=== PATIENT | female | born 1975 | race Caucasian/White ===

== ENCOUNTER 2022-06-16 13:02 | Emergency (ER) | payer MEDICARE, BC, SELFPAY ==
[2022-06-16 13:34] VITALS: BP 139/88; PULSE 88; RESP 18; TEMP 37.1; O2SAT 100; BMI 24.8
--- NOTE | 2022-06-16 14:46 | ED.GENADULT ---
HPI - General Adult General Time Seen by Provider: 14:47 Date Seen: 06/16/22 Chief complaint: Back Injury/Pain Stated complaint: Back Pain Time Seen by Provider: 06/16/22 14:32 Source: patient Mode of arrival: ambulatory Limitations: no limitations History of Present Illness HPI narrative: Harriett is a 46-year-old female past medical history includes BRCA positive breast cancer presents emergency department via private car with lower back pain. Patient came from [place] today, she was scheduled to have a corpectomy today to further evaluate her recent workup positive diagnosis, she states that yesterday around 3:30 p.m. she developed some lower lumbar back pain. No history of any kidney stones in the past, no history of any injury, pain is lower lumbar area, tight in nature, she denies any urinary or bowel incontinence or retention, she denies any, weakness or numbness of the lower extremities. She has been taking [id number] Motrin and Tylenol, pain is worse on ambulation, feels better when she is laying flat. She denies any dysuria, have some explosive diarrhea last night, she denies any worsening abdominal pain, she has not had any blood or dark tarry stools. Related Data Home Medications Medication Instructions Recorded Confirmed cyclobenzaprine 10 mg tablet mg 06/16/22 fluoxetine 40 mg capsule mg 06/16/22 prazosin 2 mg capsule mg 06/16/22 Previous Rx's Medication Instructions Recorded cefdinir 300 mg capsule 300 mg PO BID 7 days #14 caps 06/16/22 diazepam 5 mg tablet (Valium) 5 mg PO TID PRN #14 tabs 06/16/22 Allergies Allergy/AdvReac Type Severity Reaction Status Date / Time No Known Drug Allergies Allergy Verified 06/16/22 15:06 Review of Systems Status of ROS: Reports: 10 or more systems reviewed and unremarkable except as noted in History and below [facility] Medical History (Updated 06/16/22 @ 16:36 by Km Kwan MD) Breast cancer Surgical History (Updated 06/16/22 @ 15:25 by Zaida Jose RN) H/O lumpectomy Social History Smoking Status: Never smoker How often do you have a drink containing alcohol: never AUDIT-C Alcohol total score: 0 Non-prescribed substance use: denies use Exam Narrative: Exam Narrative: General: No obvious distress sitting comfortably HEENT: Tympanic membranes within normal limits bilaterally oropharynx clear and moist Neck: Supple full range of motion Abdomen: Soft, nontender, bowel sounds present Heart: Normal sinus rhythm S1-S2 Lungs clear to auscultation bilaterally Muscle skeletal: Tender to palpation the lower lumbar paraspinal musculature, no midline tenderness, straight leg raise and crossover 20? negative, +5 strength lower extremities bilaterally, CMS intact Neuro: Alert awake and oriented x3 Const: Vital Signs, click to edit/add: Vital Signs - 24 hr 06/16/22 13:34 06/16/22 15:27 06/16/22 16:26 Temperature 98.8 F Pulse Rate [Right Pulse Oximeter] 88 74 70 Respiratory Rate 18 18 Blood Pressure [Ri ght Upper Arm] 139/88 138/85 Pulse Oximetry 100 100 100 Oxygen Delivery Me thod Room Air Room Air Course Course Hospital Course: 2:30 PM: ADIET performed. vitals are stable. Work up will include IV peripheral, 30 mg IV Toradol and a mg IV Valium, will place Lidoderm patch 5% bilaterally, less likely nephrolithiasis or urolithiasis, possible urinary tract infection seems more muscle skeletal, will obtain basic labs. May consider further imaging. Differential diagnosis include cauda equina and epidural abscess. Other differential diagnosis considered includes sprain, contusion, nerve root entrapment, radiculopathy, muscle spasm urolithiasis, lumbar fracture, pyelonephritis as well as other etiologies. Reevaluation(s) Reevaluation #1: Patient was updated on her lab results, CBC showed no leukocytosis, inflammatory markers were negative, metabolic panel within normal limits, UA showed 3+ Leukocyte esterase, 25-50 WBC's, few bacteria, urine culture sent, should be treated with cefdinir 300 mg b.i.d. over the next 7 days proper followup. Reasons to return given. Time: 16:27 Vital Signs Vital signs: Initial Vital Signs Temperature 98.8 F 06/16/22 13:34 Temperature Source Temporal Artery Scan 06/16/22 13:34 Pulse Rate 88 06/16/22 13:34 Respiratory Rate 18 06/16/22 13:34 Blood Pressure 139/88 06/16/22 13:34 Blood Pressure Mean 105 06/16/22 13:34 Blood Pressure Position Sitting 06/16/22 13:34 Pulse Oximetry 100 06/16/22 13:34 Oxygen Delivery Method 06/16/22 13:34 Vital Signs Temperature 98.8 F 06/16/22 13:34 Pulse Rate 88 06/16/22 13:34 Respiratory Rate 18 06/16/22 13:34 Blood Pressure 139/88 06/16/22 13:34 Pulse Oximetry 100 06/16/22 13:34 Oxygen Delivery Method 06/16/22 13:34 Temperature 98.8 F 06/16/22 13:34 Pulse Rate 70 06/16/22 16:26 Respiratory Rate 18 06/16/22 15:27 Blood Pressure 138/85 06/16/22 16:26 Pulse Oximetry 100 06/16/22 16:26 Oxygen Delivery Method 06/16/22 16:26 Medical Decision Making Lab Data Labs: Lab Results 06/16/22 06/16/22 06/16/22 Range/Units 15:00 15:00 16:00 WBC 7.16 (4.50-11.00) K/uL RBC 4.30 (4.00-5.20) m/uL Hgb 13.1 (12.0-16.0) gm/dL Hct 39.1 (33.0-51.0) % MCV 91 (80-100) fL MCH 31 (26-34) pg MCHC 34 (32-36) gm/dL RDW Coeff of Alana 12.8 (11.5-15.5) % Plt Count 179 (140-440) K/uL Neut % (Auto) 55.8 (42.0-72.0) % Lymph % (Auto) 35.8 (20-44) % [place] % (Auto) 6.0 (0.0-11.0) % Eos % (Auto) 2.1 (0.0-7.0) % Baso % (Auto) 0.3 (0.0-3.0) % Neut # (Auto) 4.00 (1.7-7.0) K/uL Lymph # (Auto) 2.56 (0.90-2.90) K/uL [place] # (Auto) 0.40 (0.00-0.90) K/UL Eos # (Auto) 0.15 (0.00-0.50) K/uL Baso # (Auto) 0.02 (0.00-0.30) K/uL Abs Immat Gran (auto) 0.00 (0.00-0.30) K/uL Sodium 135 (135-149) mmol/L Potassium 4.2 (3.6-5.1) mmol/L Chloride 106 (96-114) mmol/L Carbon Dioxide 18 L (20-32) mmol/L BUN 12 (5-24) mg/dL Creatinine 0.5 (0.5-1.5) mg/dL Estimated Creat Clear 117.54 Estimated GFR 118 ml/min Glucose 83 (60-115) mg/dL Calcium 9.1 (8.4-10.6) mg/dL Total Bilirubin 0.6 (0.1-1.5) mg/dL AST 36 H (12-35) U/L ALT 17 (4-35) U/L Alkaline Phosphatase 98 (40-150) U/L C-Reactive Protein < 0.5 L (0.5-1.0) mg/dL Total Protein 8.2 (6.0-8.3) g/dL Albumin 4.6 (3.3-5.0) g/dL Urine Color Yellow (Yellow) Urine Appearance Slightly Cloudy A (Clear) Urine pH 6.0 (5.0-8.5) Ur Specific [place] 1.020 (1.000-1.030) Urine Protein Negative (Negative) Urine Glucose (UA) Negative (Negative) Urine Ketones Negative (Negative) Urine Blood Trace-intact A (Negative) Urine Nitrite Negative (Negative) Urine Bilirubin Negative (Negative) Urine Urobilinogen 0.2 (0.2-1.0) Ur Leukocyte Esterase 3+ A (Negative) Urine RBC 2-5 A (0-2) Urine WBC 25-50 A (0-5) Ur Squamous Epith Cells Moderate A (None-Few) Urine Bacteria Few A (None) Discharge Plan Discharge Clinical Impression: Lower back pain, History of urinary tract infection Patient Disposition: Home, Self-Care Condition: Improved Instructions: Back Pain (ED) Additional Instructions: To take the Naproxen at home as scheduled, to add Valium 5-10 mg every 4-6 hours as needed for back spasm, to follow up as scheduled with your primary care provider over the next 7-10 days. Return precautions given. Activity Level: Activity as Tolerated Prescriptions: New diazepam [Valium] 5 mg tablet 5 mg PO TID PRNQty: 14 0RF cefdinir 300 mg capsule 300 mg PO BID 7 Days Qty: 14 0RF No Action fluoxetine 40 mg capsule cyclobenzaprine 10 mg tablet prazosin 2 mg capsule Stand Alone Forms: [employer] Info Instructions
[2022-06-16] MEDS: LIDOCAINE 5% PATCH 1 PATCH TRANSDERMA (15:13)
[2022-06-16] MEDS: KETOROLAC 30 MG/ML inj IVP (15:13)
[2022-06-16] MEDS: diazePAM 5 MG/ML inj IV (15:14)
[2022-06-16 15:20] LABS: Basophils Absolute Auto 0.02 K/uL (0.00-0.30); Basophils Percent Auto 0.3 % (0.0-3.0); Eosinophils Absolute Auto 0.15 K/uL (0.00-0.50); Eosinophils Percent Auto 2.1 % (0.0-7.0); Hematocrit 39.1 % (33.0-51.0); Hemoglobin* 13.1 gm/dL (12.0-16.0); Lymphocytes Absolute Auto 2.56 K/uL (0.90-2.90); Lymphocytes Percent Auto 35.8 % (20-44); Mean Corpuscular HGB Conc 34 gm/dL (32-36); Mean Corpuscular Hemoglobin 31 pg (26-34); Mean Corpuscular Volume 91 fL (80-100); Neutrophils Percent Auto 55.8 % (42.0-72.0); Platelet Count* 179 K/uL (140-440); RDW Coefficient of Variation % 12.8 % (11.5-15.5); White Blood Count* 7.16 K/uL (4.50-11.00)
[2022-06-16 15:21] LABS: Slide Review Reflex No
[2022-06-16 15:27] VITALS: PULSE 74; RESP 18; O2SAT 100
[2022-06-16 15:57] LABS: Albumin* 4.6 g/dL (3.3-5.0); Chloride* 106 mmol/L (96-114); Potassium* 4.2 mmol/L (3.6-5.1); Sodium* 135 mmol/L (135-149)
--- NOTE | 2022-06-16 15:58 | ED.NURSE ---
pain better than before. ambulated to br, collecting urine sample.
[2022-06-16 15:59] LABS: Creatinine* 0.5 mg/dL (0.5-1.5); Est. Creatinine Clearance* 117.54; Estimated Glomerular Filt Rate 118 ml/min
[2022-06-16 16:00] LABS: Alanine Aminotransferase* 17 U/L (4-35); Alkaline Phosphatase* 98 U/L (40-150); Aspartate Amino Transferase* 36 U/L (12-35); Bilirubin Total* 0.6 mg/dL (0.1-1.5); Blood Urea Nitrogen* 12 mg/dL (5-24); Carbon Dioxide* 18 mmol/L (20-32); Glucose* 83 mg/dL (60-115); Total Protein* 8.2 g/dL (6.0-8.3)
[2022-06-16 16:01] LABS: Calcium* 9.1 mg/dL (8.4-10.6)
[2022-06-16 16:04] LABS: C Reactive Protein* < 0.5 mg/dL (0.5-1.0)
[2022-06-16 16:09] LABS: Appearance Urine Slightly Cloudy (Clear); Bilirubin Urine Negative (Negative); Blood Urine Trace-intact (Negative); Color Urine Yellow (Yellow); Glucose Urine Negative (Negative); Ketones Urine Negative (Negative); Leukocyte Esterase Urine 3+ (Negative); Nitrite Urine Negative (Negative); Protein Urine Negative (Negative); Urobilinogen Urine 0.2 (0.2-1.0)
--- NOTE | 2022-06-16 16:20 | ED.NURSE ---
Work note provided to pt through 06/17/22. IV in R hand DC'd, catheter intact.
[2022-06-16 16:26] VITALS: BP 138/85; PULSE 70; O2SAT 100
[2022-06-16 16:33] LABS: Bacteria Urine Few; Squamous Epithelial Cell Urine Moderate (None-Few); WBC Urine 25-50 (0-5)
== END 2022-06-16 16:39 | disposition home or self-care (01) ==
PROVIDERS: Emergency Provider Student in an Organized Health Care Education/Training Program
DX: M54.50 Low back pain, unspecified (principal); Z87.440 Personal history of urinary (tract) infections
CPT/HCPCS: 36415; 80053; 81003; 81015; 85025; 86140; 87086; 96374; 96375; 99283; 99284; A9270; J1885; J3360

== ENCOUNTER 2022-07-09 09:50 | Outpatient (RCR) | payer MEDICARE, BC, SELFPAY | END 2022-11-04 13:41 | disposition home or self-care (01) | PROVIDERS: Visit Provider Family Medicine | DX: M54.12 Radiculopathy, cervical region (principal); M79.602 Pain in left arm; M54.6 Pain in thoracic spine; Z51.89 Encounter for other specified aftercare | CPT/HCPCS: 97110; 97162; 97530 ==

== ENCOUNTER 2022-07-15 09:49 | Emergency (ER) | payer MEDICARE, BC, SELFPAY ==
[2022-07-15 10:42] VITALS: BP 108/84; PULSE 70; RESP 16; TEMP 37.2; O2SAT 98; BMI 25.2
[2022-07-15 11:32] LABS: SARS PCR* Negative SARS-CoV-2 (Negative)
[2022-07-15] MEDS: IBUPROFEN 400 MG TABLET 800 MG PO (12:12)
[2022-07-15 12:20] VITALS: BP 108/84; PULSE 70; RESP 16; TEMP 37.2
[2022-07-15 13:35] LABS: PCR FLU A Negative PCR FLU A (Negative); PCR FLU B Negative PCR FLU B (Negative); PCR RSV Negative PCR RSV (Negative)
--- NOTE | 2022-07-15 13:35 | ED.GENADULT ---
HPI - General Adult General Chief complaint: Cough Stated complaint: Covid+, sore throat, chest pain Time Seen by Provider: 07/15/22 11:10 History of Present Illness HPI narrative: 46-year-old woman presenting to the emergency department with complaint now 2nd day of throat pain ear pain a little shortness of breath frankly pain all over. She took a COVID test yesterday which was positive another 1 this morning was negative. 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 She has not had a measured fever but does feel warm. She did get her flu shot as well as COVID vaccines. No exposures noted. Has been sneezing she says and some cough. No rash. No diarrhea noted. Related Data Home Medications Medication Instructions Recorded Confirmed fluoxetine 40 mg capsule 40 mg PO DAILY 06/16/22 07/15/22 prazosin 2 mg capsule 2 mg PO DAILY 06/16/22 07/15/22 bupropion HCl 100 mg tablet 150 mg PO DAILY 07/15/22 07/15/22 Allergies Allergy/AdvReac Type Severity Reaction Status Date / Time No Known Drug Allergies Allergy Verified 06/16/22 15:06 Review of Systems Status of ROS: Reports: 6 or more systems reviewed and unremarkable except as noted in History and below [facility] Medical History Breast cancer Surgical History H/O lumpectomy Social History Smoking Status: Never smoker How often do you have a drink containing alcohol: never AUDIT-C Alcohol total score: 0 Non-prescribed substance use: denies use Exam Narrative: Exam Narrative: Pleasant. Curled up under a blanket. Looks like she feels uncomfortable. Bright pink lead dyed hair in front. Breathing easily. Has some tattoos on the right upper chest. TMs bilaterally are clear. Posterior oropharynx with some injected blood vessels more evident but otherwise no diffuse erythema. Upper denture plate. Neck is supple without lymphadenopathy. Lungs are clear equal expansion excursion cardiovascular with regular rate and rhythm. Soreness to palpation over the shoulders. Abdomen is soft and nontender. She is moving all extremities without difficulty. She is well perfused. Const: Vital Signs, click to edit/add: Vital Signs - 24 hr 07/15/22 10:42 07/15/22 12:20 Temperature 98.9 F 98.9 F Pulse Rate [Left P ulse Oximeter] 70 70 Respiratory Rate 16 16 Blood Pressure [Le ft Upper Arm] 108/84 108/84 Pulse Oximetry 98 Oxygen Delivery Me thod Room Air Documenting provider has reviewed patient's vital signs: yes Course Vital Signs Vital signs: Initial Vital Signs Temperature 98.9 F 07/15/22 10:42 Temperature Source Temporal Artery Scan 07/15/22 10:42 Pulse Rate 70 07/15/22 10:42 Respiratory Rate 16 07/15/22 10:42 Blood Pressure 108/84 07/15/22 10:42 Blood Pressure Mean 92 07/15/22 10:42 Blood Pressure Position Sitting 07/15/22 10:42 Pulse Oximetry 98 07/15/22 10:42 Oxygen Delivery Method 07/15/22 10:42 Vital Signs Temperature 98.9 F 07/15/22 10:42 Pulse Rate 70 07/15/22 10:42 Respiratory Rate 16 07/15/22 10:42 Blood Pressure 108/84 07/15/22 10:42 Pulse Oximetry 98 07/15/22 10:42 Oxygen Delivery Method 07/15/22 10:42 Temperature 98.9 F 07/15/22 12:20 Pulse Rate 70 07/15/22 12:20 Respiratory Rate 16 07/15/22 12:20 Blood Pressure 108/84 07/15/22 12:20 Pulse Oximetry 98 07/15/22 10:42 Oxygen Delivery Method 07/15/22 10:42 Medical Decision Making Lab Data Lab results reviewed: Yes I reviewed the patient's lab results Labs: Lab Results 07/15/22 Range/Units 10:41 SARS-CoV-2 (PCR) Negative SARS-CoV-2 (Negative) Influenza Type A (PCR) Negative PCR FLU A (Negative) Influenza Type B (PCR) Negative PCR FLU B (Negative) RSV (PCR) Negative PCR RSV (Negative) Discharge Plan Discharge Clinical Impression: Myalgia, Viral illness Patient Disposition: Home, Self-Care Condition: Stable Additional Instructions: Focus on hydration. Rest. Our COVID test was negative. Can take up to 800 mg of ibuprofen up to 1000 mg of acetaminophen per dose. Alternative to the ibuprofen could take up to 500 mg of naproxen 2 times daily. I will call you if your influenza test is positive. We can then discuss further treatment for that if necessary. Otherwise of a viral illness that is presumably also contagious given the acuity of your symptoms. Return for inability to control fever, inability to control pain, increasing and persistent shortness of breath or chest pain. Prescriptions: No Action fluoxetine 40 mg capsule 40 mg PO DAILY prazosin 2 mg capsule 2 mg PO DAILY bupropion HCl 100 mg tablet 150 mg PO DAILY Rx Instructions: administer 6 hours apart Follow Up/Referrals: Provider,Not a Local [Primary Care Provider] - Stand Alone Forms: [employer] Info Instructions Discharge Comment: Note given to excuse Pt from physical appearance in court on 07/16/22. Can continue to appear virtually.
== END 2022-07-15 12:21 | disposition home or self-care (01) ==
PROVIDERS: Emergency Provider Family Medicine
DX: B34.9 Viral infection, unspecified (principal); M79.10 Myalgia, unspecified site; Z20.822 Contact with and (suspected) exposure to COVID-19
CPT/HCPCS: 87502; 87634; 87635; 99283; A9270

== ENCOUNTER 2022-10-23 07:45 | Outpatient (CLI) | payer MEDICARE, BC, SELFPAY | END 2022-10-23 07:46 | disposition home or self-care (01) | LOC: AMB 09:30 | PROVIDERS: Visit Provider Family Medicine | DX: R10.9 Unspecified abdominal pain (principal); R11.2 Nausea with vomiting, unspecified | CPT/HCPCS: A0425; A0427 ==

== ENCOUNTER 2022-10-23 08:04 | Emergency (ER) | payer MEDICARE, BC, SELFPAY ==
[2022-10-23 08:09] VITALS: BP 111/62; PULSE 87; RESP 18; TEMP 36.8; O2SAT 96; BMI 26.6
[2022-10-23 08:17] LABS: Bilirubin Urine Negative (Negative); Blood Urine 1+ (Negative); Color Urine Yellow (Yellow); Glucose Urine Negative (Negative); Ketones Urine Negative (Negative); Leukocyte Esterase Urine 1+ (Negative); Nitrite Urine Negative (Negative); Protein Urine 2+ (Negative); Specific Gravity Urine 1.025 (1.000-1.030); Urobilinogen Urine 0.2 (0.2-1.0); pH Urine 7.5 (5.0-8.5)
[2022-10-23 08:20] LABS: Appearance Urine Cloudy (Clear)
[2022-10-23 08:30] LABS: Lactate* 1.2 mmol/L (0.5-1.9)
[2022-10-23 08:32] LABS: WBC Urine 50-100 (0-5)
[2022-10-23] MEDS: KETOROLAC 30 MG/ML inj IVP (08:32)
[2022-10-23 08:33] LABS: Bacteria Urine Many; Squamous Epithelial Cell Urine Moderate (None-Few)
[2022-10-23 08:40] LABS: HCG Qualitative* Negative (Negative)
[2022-10-23 08:41] LABS: Basophils Absolute Auto 0.02 K/uL (0.00-0.30); Basophils Percent Auto 0.2 % (0.0-3.0); Eosinophils Absolute Auto 0.11 K/uL (0.00-0.50); Eosinophils Percent Auto 1.3 % (0.0-7.0); Hematocrit 33.9 % (33.0-51.0); Hemoglobin* 11.5 gm/dL (12.0-16.0); Immature Granulocytes Abs Auto 0.07 K/uL (0.00-0.30); Immature Granulocytes Pct Auto 0.8 %; Lymphocytes Absolute Auto 2.14 K/uL (0.90-2.90); Lymphocytes Percent Auto 25.8 % (20-44); Mean Corpuscular HGB Conc 34 gm/dL (32-36); Mean Corpuscular Hemoglobin 30 pg (26-34); Mean Corpuscular Volume 90 fL (80-100); Monocytes Percent Auto 5.8 % (0.0-11.0); Neutrophils Absolute Auto 5.47 K/uL (1.7-7.0); Neutrophils Percent Auto 66.1 % (42.0-72.0); Platelet Count* 172 K/uL (140-440); RDW Coefficient of Variation % 12.8 % (11.5-15.5); Red Blood Count 3.78 m/uL (4.00-5.20); White Blood Count* 8.29 K/uL (4.50-11.00)
[2022-10-23 08:43] LABS: Slide Review Reflex No
[2022-10-23 08:46] LABS: Chloride* 112 mmol/L (96-114); Sodium* 139 mmol/L (135-149)
[2022-10-23 08:48] LABS: Albumin* 3.8 g/dL (3.3-5.0)
[2022-10-23 08:49] LABS: Creatinine* 0.6 mg/dL (0.5-1.5); Est. Creatinine Clearance* 96.92; Estimated Glomerular Filt Rate 112 ml/min
[2022-10-23 08:50] LABS: Bilirubin Direct* 0.2 mg/dL (0.0-0.5); Bilirubin Total* 0.3 mg/dL (0.1-1.5); Blood Urea Nitrogen* 11 mg/dL (5-24); Calcium* 8.8 mg/dL (8.4-10.6); Carbon Dioxide* 21 mmol/L (20-32); Glucose* 85 mg/dL (60-115); Total Protein* 6.5 g/dL (6.0-8.3)
[2022-10-23 08:51] LABS: Alanine Aminotransferase* 17 U/L (4-35); Alkaline Phosphatase* 57 U/L (40-150); Aspartate Amino Transferase* 21 U/L (12-35); Lipase* 126 U/L (23-300)
[2022-10-23 08:53] LABS: C Reactive Protein* < 0.5 mg/dL (0.5-1.0)
[2022-10-23 09:05] VITALS: BP 105/72; PULSE 56; O2SAT 98
--- NOTE | 2022-10-23 09:06 | CRLHL7_ITS ---
For Patients: As a result of the 21st Century Cures Act, medical imaging exams and procedure reports are released immediately into your electronic medical record. You may view this report before your referring provider. If you have questions, please contact your health care provider. INDICATION: Right flank pain COMPARISON: There are no prior studies for comparison TECHNIQUE: CT examination of the abdomen and pelvis was performed without intravenous contrast. Thin section axial images were obtained from the lung bases through the pubic symphysis. Oral contrast was not administered. Please note that all CT scans at this facility use dose modulation, iterative reconstruction, and/or weight-based dosing when appropriate to reduce radiation dose to as low as reasonably achievable. FINDINGS: LUNG BASES: The lung bases as visualized appear normal.The heart size is normal at the lung bases. LIVER/BILIARY SYSTEM:The liver is normal in size and configuration given the lack of intravenous contrast. There is no visible focal mass and there is no intra- or extra hepatic biliary ductal dilatation.The gall bladder appears normal. ADRENALS: Normal non-contrast appearance KIDNEYS, URETERS and BLADDER:There are no visible intrarenal calculi and there are no calculi identified within the course of the ureters or within the bladder. The right kidney is mildly edematous relative to the left with mild perinephric stranding and some thickening of the urothelium of the proximal ureter. Differential considerations are, primarily, recent passage of a stone or infection including pyelonephritis. Correlate with urinalysis. There is no hydronephrosis or hydroureter. SPLEEN:Normal non-contrast appearance. PANCREAS: Normal non-contrast appearance. RETROPERITONEUM and MESENTERY: There is no mass, adenopathy or aortic aneurysm. GASTROINTESTINAL SYSTEM: There is no evidence of diverticulitis, colitis, mechanical obstruction, or appendicitis. The small bowel as visualized appears normal. PELVIS: No mass, adenopathy or free fluid. OSSEOUS STRUCTURES and ABDOMINAL WALL: There is an age-appropriate appearance of the osseous structures.No significant abdominal wall defect. OTHER: No free fluid or free air. IMPRESSION: Abnormal right kidney. Findings suggest recent passage of a stone or infection including pyelonephritis. Currently, there is no visible calcified intrarenal calculus or calculus within either ureter or the bladder. No hydronephrosis or hydroureter. Please review the comments. Please note that all CT scans at this facility use dose modulation, iterative reconstruction, and/or weight-based dosing when appropriate to reduce radiation dose to as low as reasonably achievable. Dictated by Jose Little MD @ 10/23/2022 9:44:34 AM (Electronically Signed)
[2022-10-23 09:24] LABS: Erythrocyte SedimentationRate* 11 mm/hr (2-20)
[2022-10-23] MEDS: cefTRIAXone 1 GM in 0.9 % SODIUM CHLORIDE Mini-bag 100 ML IVPB (09:30)
[2022-10-23 09:40] VITALS: PULSE 61; O2SAT 96
--- NOTE | 2022-10-23 09:50 | ED_ITS ---
HPI - General Adult General Chief complaint: Flank Pain Stated complaint: right flank pain Time Seen by Provider: 10/23/22 08:05 Source: patient Mode of arrival: EMS Limitations: no limitations History of Present Illness HPI narrative: 47-year-old female coming in today complaining of right flank pains been going on for couple days but got significantly bad today. She denies fevers or chills. No nausea or vomiting. She states that she has had kidney infections in the past and this feels very similar to that. She denies any blood in her urine. She does have increased urinary frequency but no urgency or dysuria. She denies constipation or diarrhea. Pain radiates a little bit into the anterior abdomen. Related Data Home Medications Medication Instructions Recorded Confirmed fluoxetine 40 mg capsule 40 mg PO DAILY 06/16/22 07/15/22 prazosin 2 mg capsule 2 mg PO DAILY 06/16/22 07/15/22 bupropion HCl 100 mg tablet 150 mg PO DAILY 07/15/22 07/15/22 Allergies Allergy/AdvReac Type Severity Reaction Status Date / Time paroxetine [From Paxil] Allergy Verified 10/23/22 08:12 Review of Systems Status of ROS: Reports: 10 or more systems reviewed and unremarkable except as noted in History and below [facility] Medical History Breast cancer Surgical History H/O lumpectomy Social History Smoking Status: Never smoker How often do you have a drink containing alcohol: never AUDIT-C Alcohol total score: 0 Non-prescribed substance use: amphetamines/methamphetamines Exam Narrative: Exam Narrative: Well-nourished well-developed patient writhing in pain and moaning. Alert and oriented x3. Answers questions appropriately and is cooperative. HEENT: Normocephalic atraumatic. Pupils are equally round reactive to light. Extraocular muscles are intact. Conjunctivae are moist without any icterus noted. Moist mucous membranes. Posterior pharynx is normal. Neck is soft without any lymphadenopathy or thyromegaly. No masses are appreciated. Cardiovascular: Heart is regular rate and rhythm S1 and S2 are present without any murmurs. Lungs: Clear to auscultation bilaterally no wheezes rhonchi or rales are appreciated. Patient takes deep breaths without any discomfort. Abdomen: Soft and nontender nondistended with normal bowel sounds. No guarding or rebound. No masses or organomegaly appreciated. She does have right-sided CVA tenderness. Extremities: Bilateral lower extremities are without edema. Normal DP and PT pulses. Skin: Well perfused without any obvious rashes. Multiple tattoos. Const: Vital Signs, click to edit/add: Vital Signs - 24 hr 10/23/22 08:09 10/23/22 09:05 10/23/22 09:40 Temperature 98.3 F Pulse Rate [Right Pulse Oximeter] 87 56 L 61 Respiratory Rate 18 Blood Pressure [Ri ght Upper Arm] 111/62 105/72 Pulse Oximetry 96 98 96 Oxygen Delivery Me thod Room Air Room Air Room Air Course Course Hospital Course: IV was established in the ambulance. Patient received 30 mg of IV Toradol which helped her pain significantly. Her lab work was unremarkable except for her urinalysis did show signs of infection. Given that there is blood in her UA and the amount of pain that she was in, we did proceed with a abdominal CT to rule out a kidney stone. CT was consistent with pyelonephritis. Vital Signs Vital signs: Initial Vital Signs Temperature 98.3 F 10/23/22 08:09 Temperature Source Temporal Artery Scan 10/23/22 08:09 Pulse Rate 87 10/23/22 08:09 Respiratory Rate 18 10/23/22 08:09 Blood Pressure 111/62 10/23/22 08:09 Blood Pressure Mean 78 10/23/22 08:09 Blood Pressure Position Sitting 10/23/22 08:09 Pulse Oximetry 96 10/23/22 08:09 Oxygen Delivery Method 10/23/22 08:09 Vital Signs Temperature 98.3 F 10/23/22 08:09 Pulse Rate 87 10/23/22 08:09 Respiratory Rate 18 10/23/22 08:09 Blood Pressure 111/62 10/23/22 08:09 Pulse Oximetry 96 10/23/22 08:09 Oxygen Delivery Method 10/23/22 08:09 Temperature 98.3 F 10/23/22 08:09 Pulse Rate 61 10/23/22 09:40 Respiratory Rate 18 10/23/22 08:09 Blood Pressure 105/72 10/23/22 09:05 Pulse Oximetry 96 10/23/22 09:40 Oxygen Delivery Method 10/23/22 09:40 Medical Decision Making MDM Narrative Medical decision making narrative: 47-year-old female with pyelonephritis. Patient received a dose of IV Rocephin while she was here. She will be discharged home on oral Toradol and ciprofloxacin. We discussed reasons for follow-up. Patient was agreeable had no other questions. Urine culture pending at this time. Medical Records Medical records reviewed: Yes I reviewed the patient's medical records Lab Data Lab results reviewed: Yes I reviewed the patient's lab results Labs: Lab Results 10/23/22 10/23/22 10/23/22 Range/Units 08:10 08:20 08:20 WBC 8.29 (4.50-11.00) K/uL RBC 3.78 L (4.00-5.20) m/uL Hgb 11.5 L (12.0-16.0) gm/dL Hct 33.9 (33.0-51.0) % MCV 90 (80-100) fL MCH 30 (26-34) pg MCHC 34 (32-36) gm/dL RDW Coeff of [place] 12.8 (11.5-15.5) % Plt Count 172 (140-440) K/uL Neut % (Auto) 66.1 (42.0-72.0) % Lymph % (Auto) 25.8 (20-44) % [place] % (Auto) 5.8 (0.0-11.0) % Eos % (Auto) 1.3 (0.0-7.0) % Baso % (Auto) 0.2 (0.0-3.0) % Neut # (Auto) 5.47 (1.7-7.0) K/uL Lymph # (Auto) 2.14 (0.90-2.90) K/uL [place] # (Auto) 0.50 (0.00-0.90) K/UL Eos # (Auto) 0.11 (0.00-0.50) K/uL Baso # (Auto) 0.02 (0.00-0.30) K/uL ESR 11 (2-20) mm/hr Sodium (135-149) mmol/L Potassium (3.6-5.1) mmol/L Chloride (96-114) mmol/L Carbon Dioxide (20-32) mmol/L BUN (5-24) mg/dL Creatinine (0.5-1.5) mg/dL Estimated Creat Clear Estimated GFR ml/min Glucose (60-115) mg/dL Lactate (0.5-1.9) mmol/L Calcium (8.4-10.6) mg/dL Total Bilirubin (0.1-1.5) mg/dL Direct Bilirubin (0.0-0.5) mg/dL AST (12-35) U/L ALT (4-35) U/L Alkaline Phosphatase (40-150) U/L C-Reactive Protein (0.5-1.0) mg/dL Total Protein (6.0-8.3) g/dL Albumin (3.3-5.0) g/dL Lipase (23-300) U/L HCG, Qual (Negative) Urine Color Yellow (Yellow) Urine Appearance Cloudy A (Clear) Urine pH 7.5 (5.0-8.5) Ur Specific [place] 1.025 (1.000-1.030) Urine Protein 2+ A (Negative) Urine Glucose (UA) Negative (Negative) Urine Ketones Negative (Negative) Urine Blood 1+ A (Negative) Urine Nitrite Negative (Negative) Urine Bilirubin Negative (Negative) Urine Urobilinogen 0.2 (0.2-1.0) Ur Leukocyte Esterase 1+ A (Negative) Urine RBC 10-25 A (0-2) Urine WBC 50-100 A (0-5) Urine WBC Clumps None (None) Ur Squamous Epith Cells Moderate A (None-Few) Urine Bacteria Many A (None) 10/23/22 10/23/22 10/23/22 Range/Units 08:20 08:20 08:20 WBC (4.50-11.00) K/uL RBC (4.00-5.20) m/uL Hgb (12.0-16.0) gm/dL Hct (33.0-51.0) % MCV (80-100) fL MCH (26-34) pg MCHC (32-36) gm/dL RDW Coeff of [place]ana (11.5-15.5) % Plt Count (140-440) K/uL Neut % (Auto) (42.0-72.0) % Lymph % (Auto) (20-44) % [place] % (Auto) (0.0-11.0) % Eos % (Auto) (0.0-7.0) % Baso % (Auto) (0.0-3.0) % Neut # (Auto) (1.7-7.0) K/uL Lymph # (Auto) (0.90-2.90) K/uL [place] # (Auto) (0.00-0.90) K/UL Eos # (Auto) (0.00-0.50) K/uL Baso # (Auto) (0.00-0.30) K/uL ESR (2-20) mm/hr Sodium 139 (135-149) mmol/L Potassium 4.0 (3.6-5.1) mmol/L Chloride 112 (96-114) mmol/L Carbon Dioxide 21 (20-32) mmol/L BUN 11 (5-24) mg/dL Creatinine 0.6 (0.5-1.5) mg/dL Estimated Creat Clear 96.92 Estimated GFR 112 ml/min Glucose 85 (60-115) mg/dL Lactate (0.5-1.9) mmol/L Calcium 8.8 (8.4-10.6) mg/dL Total Bilirubin 0.3 (0.1-1.5) mg/dL Direct Bilirubin 0.2 (0.0-0.5) mg/dL AST 21 (12-35) U/L ALT 17 (4-35) U/L Alkaline Phosphatase 57 (40-150) U/L C-Reactive Protein < 0.5 L (0.5-1.0) mg/dL Total Protein 6.5 (6.0-8.3) g/dL Albumin 3.8 (3.3-5.0) g/dL Lipase 126 (23-300) U/L HCG, Qual Negative (Negative) Urine Color (Yellow) Urine Appearance (Clear) Urine pH (5.0-8.5) Ur Specific [place] (1.000-1.030) Urine Protein (Negative) Urine Glucose (UA) (Negative) Urine Ketones (Negative) Urine Blood (Negative) Urine Nitrite (Negative) Urine Bilirubin (Negative) Urine Urobilinogen (0.2-1.0) Ur Leukocyte Esterase (Negative) Urine RBC (0-2) Urine WBC (0-5) Urine WBC Clumps (None) Ur Squamous Epith Cells (None-Few) Urine Bacteria (None) 10/23/22 Range/Units 08:20 WBC (4.50-11.00) K/uL RBC (4.00-5.20) m/uL Hgb (12.0-16.0) gm/dL Hct (33.0-51.0) % MCV (80-100) fL MCH (26-34) pg MCHC (32-36) gm/dL RDW Coeff of Alana (11.5-15.5) % Plt Count (140-440) K/uL Neut % (Auto) (42.0-72.0) % Lymph % (Auto) (20-44) % [place] % (Auto) (0.0-11.0) % Eos % (Auto) (0.0-7.0) % Baso % (Auto) (0.0-3.0) % Neut # (Auto) (1.7-7.0) K/uL Lymph # (Auto) (0.90-2.90) K/uL [place] # (Auto) (0.00-0.90) K/UL Eos # (Auto) (0.00-0.50) K/uL Baso # (Auto) (0.00-0.30) K/uL ESR (2-20) mm/hr Sodium (135-149) mmol/L Potassium (3.6-5.1) mmol/L Chloride (96-114) mmol/L Carbon Dioxide (20-32) mmol/L BUN (5-24) mg/dL Creatinine (0.5-1.5) mg/dL Estimated Creat Clear Estimated GFR ml/min Glucose (60-115) mg/dL Lactate 1.2 (0.5-1.9) mmol/L Calcium (8.4-10.6) mg/dL Total Bilirubin (0.1-1.5) mg/dL Direct Bilirubin (0.0-0.5) mg/dL AST (12-35) U/L ALT (4-35) U/L Alkaline Phosphatase (40-150) U/L C-Reactive Protein (0.5-1.0) mg/dL Total Protein (6.0-8.3) g/dL Albumin (3.3-5.0) g/dL Lipase (23-300) U/L HCG, Qual (Negative) Urine Color (Yellow) Urine Appearance (Clear) Urine pH (5.0-8.5) Ur Specific [place] (1.000-1.030) Urine Protein (Negative) Urine Glucose (UA) (Negative) Urine Ketones (Negative) Urine Blood (Negative) Urine Nitrite (Negative) Urine Bilirubin (Negative) Urine Urobilinogen (0.2-1.0) Ur Leukocyte Esterase (Negative) Urine RBC (0-2) Urine WBC (0-5) Urine WBC Clumps (None) Ur Squamous Epith Cells (None-Few) Urine Bacteria (None) Imaging Data CT scan - abdomen: Attestation: I have reviewed the pertinent imaging results. Radiologist's impression: TECHNIQUE: CT examination of the abdomen and pelvis was performed without intravenous contrast. Thin section axial images were obtained from the lung bases through the pubic symphysis. Oral contrast was not administered. Please note that all CT scans at this facility use dose modulation, iterative reconstruction, and/or weight-based dosing when appropriate to reduce radiation dose to as low as reasonably achievable. FINDINGS: LUNG BASES: The lung bases as visualized appear normal.The heart size is normal at the lung bases. LIVER/BILIARY SYSTEM:The liver is normal in size and configuration given the lack of intravenous contrast. There is no visible focal mass and there is no intra- or extra hepatic biliary ductal dilatation.The gall bladder appears normal. ADRENALS: Normal non-contrast appearance KIDNEYS, URETERS and BLADDER:There are no visible intrarenal calculi and there are no calculi identified within the course of the ureters or within the bladder. The right kidney is mildly edematous relative to the left with mild perinephric stranding and some thickening of the urothelium of the proximal ureter. Differential considerations are, primarily, recent passage of a stone or infection including pyelonephritis. Correlate with urinalysis. There is no hydronephrosis or hydroureter. SPLEEN:Normal non-contrast appearance. PANCREAS: Normal non-contrast appearance. RETROPERITONEUM and MESENTERY: There is no mass, adenopathy or aortic aneurysm. GASTROINTESTINAL SYSTEM: There is no evidence of diverticulitis, colitis, mechanical obstruction, or appendicitis. The small bowel as visualized appears normal. PELVIS: No mass, adenopathy or free fluid. OSSEOUS STRUCTURES and ABDOMINAL WALL: There is an age-appropriate appearance of the osseous structures.No significant abdominal wall defect. OTHER: No free fluid or free air. IMPRESSION: Abnormal right kidney. Findings suggest recent passage of a stone or infection including pyelonephritis. Currently, there is no visible calcified intrarenal calculus or calculus within either ureter or the bladder. No hydronephrosis or hydroureter. Please review the comments. Discharge Plan Discharge Clinical Impression: Pyelonephritis Patient Disposition: Home, Self-Care Condition: Stable Additional Instructions: Take all antibiotics as prescribed. Use Toradol as needed for discomfort. Return to the ER if you feel like you are getting worse instead of better over the next couple of days. Follow-up with your primary care provider in 10-14 days. Ciprofloxacin and Toradol sent to [facility]. Prescriptions: No Action fluoxetine 40 mg capsule 40 mg PO DAILY prazosin 2 mg capsule 2 mg PO DAILY bupropion HCl 100 mg tablet 150 mg PO DAILY Rx Instructions: administer 6 hours apart Follow Up/Referrals: Provider,Not a Local [Primary Care Provider] - Stand Alone Forms: [facility] Surgical Info Instructions
[2022-10-23 10:00] VITALS: BP 94/76; PULSE 67; O2SAT 99
== END 2022-10-23 10:15 | disposition home or self-care (01) ==
PROVIDERS: Emergency Provider Family Medicine
DX: N12 Tubulo-interstitial nephritis, not specified as acute or chronic (principal)
CPT/HCPCS: 36415; 74176; 80048; 80076; 81003; 81015; 83605; 83690; 84703; 85025; 85651; 86140; 87086; 87186; 96365; 96372; 96375; 99284; J0696; J1885